=== PATIENT | female | born 1935 | race Caucasian/White ===

== ENCOUNTER 2017-11-01 15:15 | Emergency (ER) | payer MEDICARE, OTHER | END 2017-11-01 17:55 | disposition home or self-care (01) | LOC: ERS 15:15 | DX: R21 Rash and other nonspecific skin eruption (principal); F32.9 Major depressive disorder, single episode, unspecified; G40.909 Epilepsy, unspecified, not intractable, without status epilepticus; I48.91 Unspecified atrial fibrillation | CPT/HCPCS: 99282 ==

== ENCOUNTER 2017-11-16 16:30 | Emergency (ER) | payer MEDICARE, OTHER ==
[2017-11-16] MEDS ORDERED: Acetaminophen 500 MG TAB ONE (17:45)
[2017-11-16 18:00] LABS: Bilirubin Negative (Negative); Blood, Urine Negative (Negative); Clarity CLOUDY (Clear); Glucose, Urine (Dipstick) Negative (Negative); Leukocyte Negative (Negative); Nitrite Negative (Negative); Protein, Urine (Dipstick) Negative (Neg-Trace); Specific Gravity, Urine 1.016 (1.002-1.036)
[2017-11-16 18:48] LABS: Hemoglobin 14.3 g/dL (12.0-16.0); Mean Corpuscular HGB CONC 32.5 g/dL (32.0-36.0); Mean Corpuscular Hemoglobin 32.4 pg (27.0-31.0); Mean Corpuscular Volume 99.6 fl (81.0-99.0); RBC Distribution Width 12.9 % (11.5-14.5); White Blood Cell (WBC) Count 2.4 thou/uL (4.8-10.8)
--- NOTE | 2017-11-16 19:01 | RAD ---
TWO VIEW CHEST 11/16/17 HISTORY: Fever. Lungs are clear. No infiltrate identified. Heart is mildly enlarged. Vascular markings are normal. De generative change in the spine. Vertebral bodies maintain height. There are deformities in ribs bilaterally indicating old rib fractures. IMPRESSION: No acute lung process identified. There is mild hyperexpansion and mild cardiomegaly. POS: H
[2017-11-16 19:07] LABS: Band 4 % (5-11); Lymphocytes 12 % (21-51); MDiff Complete? YES; Mean Platelet Volume 8.9 fL (7.4-10.4); Monocytes 16 % (0-10); Neutrophil 68 % (42-75); PLT Morphology Comment Appears Decreased; Platelet Count 88 thou/uL (130-400)
[2017-11-16 19:10] LABS: ALT (SGPT) 23 U/L (8-55); AST (SGOT) 39 U/L (5-34); Albumin 4.5 g/dL (3.4-4.8); Alkaline Phosphatase 98 U/L (40-150); Anion Gap 17 mmol/L (10-20); BUN (Urea Nitrogen) 15 mg/dL (9.8-20.1); Bilirubin, Total 0.7 mg/dL (0.2-1.2); CRP (Inflammatory) 0.59 mg/dL (= or < 0.5); Calc. Creatinine Clearance 0 mL/min (70-130); Calcium 9.2 mg/dL (7.8-10.44); Carbon Dioxide 22 mmol/L (23-31); Chloride 100 mmol/L (98-107); Estimated GFR-MDRD 59; Globulin 2.6 g/dL (2.4-3.5); Glucose 85 mg/dL (83-110); Potassium 4.1 mmol/L (3.5-5.1); Protein, Total 7.1 g/dL (6.0-8.3); Sodium 135 mmol/L (136-145)
== END 2017-11-16 20:08 | disposition home or self-care (01) ==
LOC: ERS 16:30
DX: J10.1 Influenza due to other identified influenza virus with other respiratory manifestations (principal); F41.9 Anxiety disorder, unspecified; F32.9 Major depressive disorder, single episode, unspecified; Z79.899 Other long term (current) drug therapy; Z79.01 Long term (current) use of anticoagulants
CPT/HCPCS: 71046; 80053; 81003; 83605; 85025; 86140

== ENCOUNTER 2022-06-29 13:21 | Inpatient (IN) | payer MEDICARE ==
[2022-06-29 14:33] LABS: #Monocytes 0.5 thou/uL (0.11-0.59); #Neutrophils 2.9 thou/uL (1.40-6.50); %Basophils 0.7 % (0.0-1.0); %Eosinophils 0.8 % (0.0-10.0); %Lymphocytes 22.5 % (21.0-51.0); %Monocytes 10.5 % (0.0-10.0); %Neutrophils 65.5 % (42.0-75.0); Hemoglobin 12.7 g/dL (12.0-16.0); Mean Corpuscular HGB CONC 33.1 g/dL (32.0-36.0); Mean Corpuscular Hemoglobin 31.1 pg (27.0-31.0); Mean Corpuscular Volume 93.9 fL (78.0-98.0); Mean Platelet Volume 8.1 fL (7.4-10.4); Platelet Count 119 thou/uL (130-400); RBC Distribution Width 11.9 % (11.5-14.5); Red Blood Cell (RBC) Count 4.08 mill/uL (4.20-5.40); White Blood Cell (WBC) Count 4.5 thou/uL (4.8-10.8)
[2022-06-29] MEDS ORDERED: Iopamidol-370 76% 500 ML 1 ML ONE (14:49)
[2022-06-29 14:51] LABS: ALT (SGPT) 55 U/L (8-55); AST (SGOT) 47 U/L (5-34); Albumin 3.9 g/dL (3.4-4.8); Alkaline Phosphatase 249 U/L (40-110); Anion Gap 16 mmol/L (10-20); BUN (Urea Nitrogen) 9 mg/dL (9.8-20.1); Bilirubin, Total 0.9 mg/dL (0.2-1.2); Calc. Creatinine Clearance 0 mL/min (70-130); Calcium 9.3 mg/dL (7.8-10.44); Carbon Dioxide 23 mmol/L (23-31); Chloride 97 mmol/L (98-107); Estimated GFR 73; Globulin 2.5 g/dL (2.4-3.5); Glucose 107 mg/dL (83-110); Lipase 20 U/L (8-78); Potassium 3.5 mmol/L (3.5-5.1); Protein, Total 6.4 g/dL (5.8-8.1); Sodium 132 mmol/L (136-145)
[2022-06-29 17:41] LABS: Bilirubin Negative (Negative); Blood, Urine Negative (Negative); Clarity Clear (Clear); Glucose, Urine (Dipstick) Normal (Negative); Ketone, Urine 10 mg/dL (Negative); Leukocyte Negative Leu/uL (Negative); Nitrite Negative (Negative); Protein, Urine (Dipstick) Negative (Neg-Trace); Specific Gravity, Urine 1.015 (1.002-1.036); Urobilinogen Normal mg/dL (Less than 2)
[2022-06-29] MEDS ORDERED: Morphine 4 MG/ML VIAL ONE (21:29)
[2022-06-30 00:22] LABS: SARS-CoV-2 NAA Rapid Test Not Detected (NotDetected)
[2022-06-30] MEDS ORDERED: Ondansetron PF 4 MG/2 ML Vial IVP PRN (00:25)
[2022-06-30] MEDS ORDERED: Ondansetron ODT 4 MG TAB PO PRN (00:25)
[2022-06-30] MEDS ORDERED: Acetaminophen 325 MG TAB PO PRN (00:25)
[2022-06-30] MEDS ORDERED: Acetaminophen 650 MG Suppository PR PRN (00:25)
[2022-06-30 02:11] VITALS: BMI 17.6
[2022-06-30 07:11] LABS: #Eosinphils 0.1 thou/uL (0.0-0.7); #Lymphocytes 1.2 thou/uL (1.20-3.40); #Monocytes 0.6 thou/uL (0.11-0.59); #Neutrophils 2.9 thou/uL (1.40-6.50); %Basophils 0.5 % (0.0-1.0); %Eosinophils 1.4 % (0.0-10.0); %Lymphocytes 25.8 % (21.0-51.0); %Neutrophils 60.2 % (42.0-75.0); Hemoglobin 12.4 g/dL (12.0-16.0); Mean Corpuscular HGB CONC 32.9 g/dL (32.0-36.0); Mean Corpuscular Hemoglobin 31.3 pg (27.0-31.0); Mean Corpuscular Volume 95.1 fL (78.0-98.0); Mean Platelet Volume 8.6 fL (7.4-10.4); Platelet Count 118 thou/uL (130-400); RBC Distribution Width 11.9 % (11.5-14.5); Red Blood Cell (RBC) Count 3.96 mill/uL (4.20-5.40); White Blood Cell (WBC) Count 4.8 thou/uL (4.8-10.8)
[2022-06-30 07:23] LABS: Anion Gap 12 mmol/L (10-20); BUN (Urea Nitrogen) 13 mg/dL (9.8-20.1); Calc. Creatinine Clearance 48 mL/min (70-130); Calcium 8.5 mg/dL (7.8-10.44); Carbon Dioxide 25 mmol/L (23-31); Chloride 101 mmol/L (98-107); Estimated GFR 85; Glucose 89 mg/dL (83-110); Potassium 3.5 mmol/L (3.5-5.1); Sodium 134 mmol/L (136-145)
[2022-06-30] MEDS: Enoxaparin Sodium 40 MG/0.4 ML SYRINGE SC SCH (08:08)
[2022-06-30] MEDS: Dronabinol 2.5 MG CAP PO SCH (17:32)
[2022-06-30] MEDS: Senokot S 8.6-50 MG TAB PO SCH (21:40)
[2022-06-30] MEDS: PHENobarbital 32.4 MG TAB PO SCH (21:40)
[2022-07-01] MEDS: Senokot S 8.6-50 MG TAB PO SCH ×2 (09:08→20:56)
[2022-07-01] MEDS: Dronabinol 2.5 MG CAP PO SCH ×2 (09:09→17:10)
[2022-07-01] MEDS: Polyethylene Glycol 3350 17 GM Packet PO SCH (09:09)
[2022-07-01] MEDS: Enoxaparin Sodium 40 MG/0.4 ML SYRINGE SC SCH (09:09)
[2022-07-01] MEDS ORDERED: Fleet Enema 133 ML BOT PR SCH ×2 (15:00→17:15)
[2022-07-01] MEDS: PHENobarbital 32.4 MG TAB PO SCH (20:55)
[2022-07-02] MEDS ORDERED: Simethicone Chewable 80 MG TAB PO PRN (00:07)
[2022-07-02] MEDS ORDERED: Glycerin Adult Supp. (24 ct jar) PR PRN (00:26)
[2022-07-02] MEDS: Senokot S 8.6-50 MG TAB PO SCH ×2 (08:15→21:39)
[2022-07-02] MEDS: Polyethylene Glycol 3350 17 GM Packet PO SCH (08:15)
[2022-07-02] MEDS: Dronabinol 2.5 MG CAP PO SCH ×2 (08:15→16:33)
[2022-07-02] MEDS: Enoxaparin Sodium 40 MG/0.4 ML SYRINGE SC SCH (08:16)
[2022-07-02] MEDS: Metoclopramide HCl 10 MG/2 ML VIAL IVP PRN (16:39)
[2022-07-02] MEDS: Sodium Chloride 0.9% 1,000 ML IV SCH (16:40)
[2022-07-02] MEDS ORDERED: hydrALAZINE 20 MG/ML VIAL SLOW IVP PRN (17:25)
[2022-07-02] MEDS: D5W-AA 4.25% with LYTES 1,000 ML IV SCH (18:35)
[2022-07-02] MEDS: PHENobarbital Sodium 65 MG/ML VIAL SLOW IVP SCH (21:13)
[2022-07-03] MEDS: Metoclopramide HCl 10 MG/2 ML VIAL IVP PRN (06:18)
[2022-07-03 06:56] LABS: #Eosinphils 0.1 thou/uL (0.0-0.7); #Lymphocytes 0.8 thou/uL (1.20-3.40); #Monocytes 0.7 thou/uL (0.11-0.59); #Neutrophils 4.2 thou/uL (1.40-6.50); %Basophils 0.2 % (0.0-1.0); %Eosinophils 0.9 % (0.0-10.0); %Lymphocytes 13.9 % (21.0-51.0); %Monocytes 11.4 % (0.0-10.0); %Neutrophils 73.5 % (42.0-75.0); Hemoglobin 13.5 g/dL (12.0-16.0); Mean Corpuscular HGB CONC 33.2 g/dL (32.0-36.0); Mean Corpuscular Hemoglobin 31.2 pg (27.0-31.0); Mean Platelet Volume 8.3 fL (7.4-10.4); Platelet Count 151 thou/uL (130-400); RBC Distribution Width 11.9 % (11.5-14.5); Red Blood Cell (RBC) Count 4.32 mill/uL (4.20-5.40); White Blood Cell (WBC) Count 5.7 thou/uL (4.8-10.8)
[2022-07-03 07:20] LABS: ALT (SGPT) 42 U/L (8-55); AST (SGOT) 36 U/L (5-34); Albumin 3.4 g/dL (3.4-4.8); Alkaline Phosphatase 239 U/L (40-110); Anion Gap 16 mmol/L (10-20); BUN (Urea Nitrogen) 10 mg/dL (9.8-20.1); Calc. Creatinine Clearance 55 mL/min (70-130); Calcium 8.4 mg/dL (7.8-10.44); Carbon Dioxide 22 mmol/L (23-31); Chloride 91 mmol/L (98-107); Estimated GFR 88; Globulin 2.3 g/dL (2.4-3.5); Glucose 120 mg/dL (83-110); Potassium 3.7 mmol/L (3.5-5.1); Protein, Total 5.7 g/dL (5.8-8.1); Sodium 125 mmol/L (136-145)
[2022-07-03] MEDS: Dronabinol 2.5 MG CAP PO SCH ×2 (08:28→17:24)
[2022-07-03] MEDS: Polyethylene Glycol 3350 17 GM Packet PO SCH (08:51)
[2022-07-03] MEDS: Senokot S 8.6-50 MG TAB PO SCH ×2 (08:51→20:17)
[2022-07-03] MEDS: Enoxaparin Sodium 40 MG/0.4 ML SYRINGE SC SCH (08:51)
[2022-07-03] MEDS: Sodium Chloride 0.9% 1,000 ML IV SCH (16:50)
[2022-07-03] MEDS: D5W-AA 4.25% with LYTES 1,000 ML IV SCH (18:05)
[2022-07-03] MEDS: PHENobarbital Sodium 65 MG/ML VIAL SLOW IVP SCH (20:17)
[2022-07-04] MEDS: Enoxaparin Sodium 40 MG/0.4 ML SYRINGE SC SCH (08:53)
[2022-07-04] MEDS: Dronabinol 2.5 MG CAP PO SCH ×2 (08:53→16:56)
[2022-07-04] MEDS: Senokot S 8.6-50 MG TAB PO SCH ×2 (08:54→20:37)
[2022-07-04] MEDS: Polyethylene Glycol 3350 17 GM Packet PO SCH (08:54)
[2022-07-04 09:38] LABS: Anion Gap 15 mmol/L (10-20); BUN (Urea Nitrogen) 13 mg/dL (9.8-20.1); Calc. Creatinine Clearance 48 mL/min (70-130); Calcium 8.4 mg/dL (7.8-10.44); Carbon Dioxide 23 mmol/L (23-31); Chloride 95 mmol/L (98-107); Estimated GFR 85; Glucose 170 mg/dL (83-110); Potassium 3.8 mmol/L (3.5-5.1); Sodium 129 mmol/L (136-145)
[2022-07-04 15:12] LABS: Bacteria/HPF 3+ HPF (None Seen); Bilirubin Negative (Negative); Blood, Urine Negative (Negative); Clarity Clear (Clear); Glucose, Urine (Dipstick) Normal (Negative); Ketone, Urine Negative (Negative); Leukocyte Negative Leu/uL (Negative); Nitrite Negative (Negative); Protein, Urine (Dipstick) Negative (Neg-Trace); RBC/HPF 0-3 HPF (0-3); Specific Gravity, Urine 1.008 (1.002-1.036); Squamous Epithelial 0-3 HPF (0-3); WBC/HPF 0-3 HPF (0-3)
[2022-07-04 15:13] LABS: Urine Culture Reflex Yes Yes
[2022-07-04 15:48] LABS: Sodium, Urine Less than 20 mmol/L (Not Available); Urea Nitrogen, Random Urine 408 mg/dl
[2022-07-04] MEDS ORDERED: PHENobarbital 32.4 MG TAB PO SCH (21:00)
[2022-07-05] MEDS: Senokot S 8.6-50 MG TAB PO SCH (08:27)
[2022-07-05] MEDS: Polyethylene Glycol 3350 17 GM Packet PO SCH (08:27)
[2022-07-05] MEDS: Dronabinol 2.5 MG CAP PO SCH (08:27)
[2022-07-05] MEDS ORDERED: Rivaroxaban 10 MG TAB PO SCH (09:00)
[2022-07-05 11:25] LABS: Anion Gap 12 mmol/L (10-20); BUN (Urea Nitrogen) 11 mg/dL (9.8-20.1); Calc. Creatinine Clearance 48 mL/min (70-130); Calcium 8.4 mg/dL (7.8-10.44); Carbon Dioxide 27 mmol/L (23-31); Chloride 96 mmol/L (98-107); Estimated GFR 85; Glucose 125 mg/dL (83-110); Sodium 131 mmol/L (136-145)
[2022-07-05 15:38] VITALS: BP 135/90; TEMP 97.3
== END 2022-07-05 16:02 | disposition hospice, home (50) | DRG 435 ==
LOC: ERS 13:21 → INTOOBSV 22:23 → ERHOLD 22:23 → T4-A 06-30 01:43 → OBSVTOIN 07-01 15:21
PROVIDERS: ADMIT Hospitalist; ATTEND Hospitalist
DX: C25.1 Malignant neoplasm of body of pancreas (principal); Z66 Do not resuscitate; Z20.822 Contact with and (suspected) exposure to COVID-19; Z51.5 Encounter for palliative care; E43 Unspecified severe protein-calorie malnutrition; K56.7 Ileus, unspecified; C79.89 Secondary malignant neoplasm of other specified sites; E87.1 Hypo-osmolality and hyponatremia; G40.802 Other epilepsy, not intractable, without status epilepticus; Z68.1 Body mass index [BMI] 19.9 or less, adult; G40.909 Epilepsy, unspecified, not intractable, without status epilepticus; D69.6 Thrombocytopenia, unspecified; K59.09 Other constipation; N18.2 Chronic kidney disease, stage 2 (mild); I12.9 Hypertensive chronic kidney disease with stage 1 through stage 4 chronic kidney disease, or unspecified chronic kidney disease; Z28.21 Immunization not carried out because of patient refusal; Z88.8 Allergy status to other drugs, medicaments and biological substances; Z79.899 Other long term (current) drug therapy; Z79.1 Long term (current) use of non-steroidal anti-inflammatories (NSAID); Z86.718 Personal history of other venous thrombosis and embolism; Z90.710 Acquired absence of both cervix and uterus
CPT/HCPCS: 36415; 71045; 71275; 74018; 74177; 80048; 80053; 81001; 81003; 82378; 83605; 83690; 83880; 83930; 83935; 84300; 84484; 84540; 84560; 85025; 86301; 87086; 93005; 96361; 96372; 96374; G0378; J1650; J2270; J2560; J2765; J7050; Q0167; Q9967

== ENCOUNTER 2022-08-13 21:50 | Inpatient (IN) | payer MEDICARE ==
[2022-08-13] MEDS ORDERED: Fentanyl 100 MCG/2 ML VIAL ONE (22:03)
[2022-08-13 22:30] LABS: Hemoglobin 13.3 g/dL (12.0-16.0); Mean Corpuscular HGB CONC 32.5 g/dL (32.0-36.0); Mean Corpuscular Hemoglobin 30.8 pg (27.0-31.0); Mean Corpuscular Volume 94.8 fL (78.0-98.0); Mean Platelet Volume 8.9 fL (7.4-10.4); Platelet Count 114 thou/uL (130-400); RBC Distribution Width 11.6 % (11.5-14.5); Red Blood Cell (RBC) Count 4.32 mill/uL (4.20-5.40); White Blood Cell (WBC) Count 5.4 thou/uL (4.8-10.8)
[2022-08-13 22:41] LABS: ALT (SGPT) 34 U/L (8-55); AST (SGOT) 37 U/L (5-34); Albumin 3.8 g/dL (3.4-4.8); Alkaline Phosphatase 331 U/L (40-110); Anion Gap 14 mmol/L (10-20); BUN (Urea Nitrogen) 10 mg/dL (9.8-20.1); Bilirubin, Total 0.6 mg/dL (0.2-1.2); Calc. Creatinine Clearance 0 mL/min (70-130); Calcium 9.1 mg/dL (7.8-10.44); Carbon Dioxide 26 mmol/L (23-31); Chloride 99 mmol/L (98-107); Estimated GFR 86; Globulin 2.4 g/dL (2.4-3.5); Glucose 116 mg/dL (83-110); Potassium 3.7 mmol/L (3.5-5.1); Protein, Total 6.2 g/dL (5.8-8.1); Sodium 135 mmol/L (136-145)
[2022-08-13 22:52] LABS: #Eosinphils 0.1 thou/uL (0.0-0.7); #Lymphocytes 1.3 thou/uL (1.20-3.40); #Monocytes 0.6 thou/uL (0.11-0.59); #Neutrophils 3.4 thou/uL (1.40-6.50); %Basophils 0.4 % (0.0-1.0); %Eosinophils 2.1 % (0.0-10.0); %Lymphocytes 24.1 % (21.0-51.0); %Monocytes 10.4 % (0.0-10.0); Large Platelets SLIGHT; MDiff Complete? YES; Platelet Morphology Comment Appears Decreased; RBC Morphology Normal
[2022-08-13] MEDS ORDERED: TETANUS, DIPHTHERIA TOX,ADULT (TDVAX) 0.5 ML VIAL IM ONE (23:19)
[2022-08-13] MEDS ORDERED: Promethazine HCl 25 MG/ML VIAL IM PRN (23:19)
[2022-08-14] MEDS: Sodium Chloride 0.9% 1,000 ML IV SCH ×2 (00:52→17:53)
[2022-08-14] MEDS: Acetaminophen 500 MG TAB PO SCH ×4 (01:01→17:53)
[2022-08-14] MEDS: Morphine 2 MG/ML VIAL SLOW IVP PRN ×3 (01:01→19:23)
[2022-08-14 04:20] LABS: #Lymphocytes 0.7 thou/uL (1.20-3.40); #Monocytes 0.6 thou/uL (0.11-0.59); %Basophils 0.3 % (0.0-1.0); %Eosinophils 0.4 % (0.0-10.0); %Monocytes 7.6 % (0.0-10.0); %Neutrophils 81.7 % (42.0-75.0); Hemoglobin 12.8 g/dL (12.0-16.0); Mean Corpuscular Hemoglobin 31.5 pg (27.0-31.0); Mean Corpuscular Volume 95.3 fL (78.0-98.0); Mean Platelet Volume 9.7 fL (7.4-10.4); Platelet Count 117 thou/uL (130-400); RBC Distribution Width 11.5 % (11.5-14.5); Red Blood Cell (RBC) Count 4.06 mill/uL (4.20-5.40); White Blood Cell (WBC) Count 7.4 thou/uL (4.8-10.8)
[2022-08-14 04:30] LABS: Anion Gap 15 mmol/L (10-20); BUN (Urea Nitrogen) 10 mg/dL (9.8-20.1); Calc. Creatinine Clearance 43 mL/min (70-130); Calcium 8.7 mg/dL (7.8-10.44); Carbon Dioxide 26 mmol/L (23-31); Chloride 98 mmol/L (98-107); Estimated GFR 86; Glucose 117 mg/dL (83-110); Potassium 3.8 mmol/L (3.5-5.1); Sodium 135 mmol/L (136-145)
[2022-08-14] MEDS: Famotidine/PF 20 mg/2ml Vial SLOW IVP SCH ×2 (08:40→20:59)
[2022-08-14] MEDS: Dronabinol 2.5 MG CAP PO SCH ×2 (08:40→17:53)
[2022-08-14] MEDS: PHENobarbital 32.4 MG TAB PO SCH (08:41)
[2022-08-14 11:19] LABS: SARS-CoV-2 NAA Rapid Test Not Detected (NotDetected)
[2022-08-14] MEDS ORDERED: Senokot S 8.6-50 MG TAB PO SCH (13:15)
[2022-08-14] MEDS ORDERED: Rivaroxaban 10 MG TAB PO SCH (17:00)
[2022-08-14] MEDS: Senokot S 8.6-50 MG TAB PO SCH (20:57)
[2022-08-14] MEDS ORDERED: Magnesium 2 GM/50 ML(in water) 2 GM in Premix Bag 1 BAG IVPB SCH (22:00)
[2022-08-14] MEDS ORDERED: Glycerin Adult Supp. (24 ct jar) PR PRN (23:51)
[2022-08-14] MEDS ORDERED: Simethicone Chewable 80 MG TAB PO PRN (23:51)
[2022-08-15] MEDS: Acetaminophen 500 MG TAB PO SCH ×4 (00:24→17:29)
[2022-08-15 04:29] LABS: #Lymphocytes 0.7 thou/uL (1.20-3.40); #Monocytes 0.9 thou/uL (0.11-0.59); #Neutrophils 6.4 thou/uL (1.40-6.50); %Basophils 0.2 % (0.0-1.0); %Eosinophils 0.4 % (0.0-10.0); %Lymphocytes 8.8 % (21.0-51.0); %Monocytes 11.6 % (0.0-10.0); Mean Corpuscular HGB CONC 32.8 g/dL (32.0-36.0); Mean Corpuscular Volume 94.7 fL (78.0-98.0); Mean Platelet Volume 9.7 fL (7.4-10.4); Platelet Count 112 thou/uL (130-400); RBC Distribution Width 11.7 % (11.5-14.5); Red Blood Cell (RBC) Count 3.87 mill/uL (4.20-5.40); White Blood Cell (WBC) Count 8.1 thou/uL (4.8-10.8)
[2022-08-15 04:57] LABS: Anion Gap 13 mmol/L (10-20); BUN (Urea Nitrogen) 11 mg/dL (9.8-20.1); Calc. Creatinine Clearance 51 mL/min (70-130); Calcium 8.5 mg/dL (7.8-10.44); Carbon Dioxide 23 mmol/L (23-31); Chloride 102 mmol/L (98-107); Estimated GFR 87; Glucose 137 mg/dL (83-110); Magnesium 2.4 mg/dL (1.6-2.6); Phosphorus 2.5 mg/dL (2.3-4.7); Potassium 3.3 mmol/L (3.5-5.1); Sodium 135 mmol/L (136-145)
[2022-08-15] MEDS: Morphine 2 MG/ML VIAL SLOW IVP PRN ×4 (06:01→17:29)
[2022-08-15] MEDS: Sodium Chloride 0.9% 1,000 ML IV SCH (06:08)
[2022-08-15] MEDS ORDERED: CEFAZOLIN 2 GM in Sodium Chloride 0.9% 100 ML IVPB SCH (07:45)
[2022-08-15] MEDS ORDERED: Senokot S 8.6-50 MG TAB PO SCH (09:00)
[2022-08-15] MEDS: Famotidine/PF 20 mg/2ml Vial SLOW IVP SCH ×2 (10:43→20:55)
[2022-08-15] MEDS: Senokot S 8.6-50 MG TAB PO SCH ×2 (10:56→21:11)
[2022-08-15] MEDS: Dronabinol 2.5 MG CAP PO SCH ×2 (11:12→16:16)
[2022-08-15] MEDS ORDERED: Ondansetron ODT 4 MG TAB PO PRN (14:07)
[2022-08-15] MEDS ORDERED: Morphine IR 10 MG/5 ML UDCUP PO PRN (14:07)
[2022-08-15] MEDS: Ondansetron PF 4 MG/2 ML Vial IVP PRN (14:09)
[2022-08-15] MEDS ORDERED: diphenhydrAMINE 25 MG CAP PO PRN (15:20)
[2022-08-15] MEDS: PHENobarbital 32.4 MG TAB PO SCH ×2 (15:34→20:55)
[2022-08-15] MEDS ORDERED: SIMETHICONE 125 MG PO SCH (17:00)
[2022-08-15] MEDS: Simethicone Chewable 80 MG TAB PO SCH ×2 (20:55→22:20)
[2022-08-16] MEDS: Acetaminophen 500 MG TAB PO SCH ×4 (01:00→18:41)
[2022-08-16] MEDS: Polyethylene Glycol 3350 17 GM Packet PO SCH ×4 (09:12→21:28)
[2022-08-16] MEDS: Famotidine/PF 20 mg/2ml Vial SLOW IVP SCH ×2 (09:17→21:32)
[2022-08-16] MEDS: Simethicone Chewable 80 MG TAB PO SCH ×4 (09:17→23:17)
[2022-08-16] MEDS: Dronabinol 2.5 MG CAP PO SCH ×2 (09:17→19:51)
[2022-08-16] MEDS: Senokot S 8.6-50 MG TAB PO SCH ×2 (09:20→21:36)
[2022-08-16] MEDS: Morphine 2 MG/ML VIAL SLOW IVP PRN ×3 (12:30→23:53)
[2022-08-16] MEDS ORDERED: CEFAZOLIN 2 GM VIAL ONE (15:07)
[2022-08-16] MEDS ORDERED: Sodium Chloride 0.9% 100 ML ONE (15:07)
[2022-08-16] MEDS ORDERED: PROPOFOL 200 MG/20 ML VIAL ONE (15:28)
[2022-08-16] MEDS ORDERED: Ondansetron PF 4 MG/2 ML Vial ONE (15:28)
[2022-08-16] MEDS ORDERED: Fentanyl 100 MCG/2 ML VIAL ONE (17:02)
[2022-08-16] MEDS ORDERED: hydrALAZINE 20 MG/ML VIAL SLOW IVP PRN (18:14)
[2022-08-16] MEDS: Sodium Chloride 0.9% 1,000 ML IV SCH ×2 (19:51→22:08)
[2022-08-16] MEDS ORDERED: Fentanyl 100 MCG/2 ML VIAL SLOW IVP SCH (20:15)
[2022-08-16] MEDS: Lorazepam 1 MG TAB PO SCH (21:35)
[2022-08-16] MEDS: PHENobarbital 32.4 MG TAB PO SCH (21:35)
[2022-08-16] MEDS: CEFAZOLIN 2 GM in Sodium Chloride 0.9% 100 ML IVPB SCH (23:56)
[2022-08-17] MEDS: Acetaminophen 500 MG TAB PO SCH ×4 (00:16→18:16)
[2022-08-17 04:51] LABS: #Eosinphils 0.1 thou/uL (0.0-0.7); #Lymphocytes 1.4 thou/uL (1.20-3.40); #Monocytes 1.4 thou/uL (0.11-0.59); %Basophils 0.5 % (0.0-1.0); %Eosinophils 0.8 % (0.0-10.0); %Lymphocytes 14.1 % (21.0-51.0); %Monocytes 14.5 % (0.0-10.0); %Neutrophils 70.2 % (42.0-75.0); Hemoglobin 12.6 g/dL (12.0-16.0); Mean Corpuscular Hemoglobin 30.8 pg (27.0-31.0); Mean Corpuscular Volume 96.4 fL (78.0-98.0); Mean Platelet Volume 9.3 fL (7.4-10.4); Platelet Count 151 thou/uL (130-400); RBC Distribution Width 11.9 % (11.5-14.5); Red Blood Cell (RBC) Count 4.08 mill/uL (4.20-5.40); White Blood Cell (WBC) Count 9.9 thou/uL (4.8-10.8)
[2022-08-17 05:13] LABS: Anion Gap 11 mmol/L (10-20); BUN (Urea Nitrogen) 10 mg/dL (9.8-20.1); Calc. Creatinine Clearance 49 mL/min (70-130); Calcium 8.7 mg/dL (7.8-10.44); Carbon Dioxide 27 mmol/L (23-31); Chloride 101 mmol/L (98-107); Estimated GFR 86; Glucose 104 mg/dL (83-110); Magnesium 1.9 mg/dL (1.6-2.6); Phosphorus 2.9 mg/dL (2.3-4.7); Potassium 4.1 mmol/L (3.5-5.1); Sodium 135 mmol/L (136-145)
[2022-08-17] MEDS: Famotidine/PF 20 mg/2ml Vial SLOW IVP SCH ×2 (08:42→20:44)
[2022-08-17] MEDS: Simethicone Chewable 80 MG TAB PO SCH ×3 (08:42→18:16)
[2022-08-17] MEDS: Dronabinol 2.5 MG CAP PO SCH ×2 (08:43→15:45)
[2022-08-17] MEDS: CEFAZOLIN 2 GM in Sodium Chloride 0.9% 100 ML IVPB SCH ×4 (08:44→15:39)
[2022-08-17] MEDS: Senokot S 8.6-50 MG TAB PO SCH ×2 (08:45→20:44)
[2022-08-17] MEDS: Polyethylene Glycol 3350 17 GM Packet PO SCH ×2 (08:45→20:42)
[2022-08-17] MEDS: Lorazepam 0.5 MG TAB PO PRN ×2 (08:57→17:27)
[2022-08-17] MEDS ORDERED: FLU VACC QS2022-23(65YR UP)/PF 240 MCG/0.7 ML SYRINGE IM ONE (09:00)
[2022-08-17] MEDS: Morphine 4 MG/ML VIAL SLOW IVP PRN ×2 (15:38→18:22)
[2022-08-17] MEDS: Lorazepam 1 MG TAB PO SCH (20:44)
[2022-08-17] MEDS: PHENobarbital 32.4 MG TAB PO SCH (20:44)
[2022-08-18] MEDS: Simethicone Chewable 80 MG TAB PO SCH ×5 (01:58→21:33)
[2022-08-18] MEDS: Acetaminophen 500 MG TAB PO SCH ×5 (01:58→23:54)
[2022-08-18 06:15] LABS: #Eosinphils 0.1 thou/uL (0.0-0.7); #Lymphocytes 1.2 thou/uL (1.20-3.40); #Monocytes 0.9 thou/uL (0.11-0.59); %Basophils 0.3 % (0.0-1.0); %Eosinophils 1.1 % (0.0-10.0); %Lymphocytes 16.1 % (21.0-51.0); %Neutrophils 70.5 % (42.0-75.0); Hemoglobin 10.3 g/dL (12.0-16.0); Mean Corpuscular HGB CONC 31.9 g/dL (32.0-36.0); Mean Corpuscular Hemoglobin 30.7 pg (27.0-31.0); Mean Corpuscular Volume 96.2 fL (78.0-98.0); Mean Platelet Volume 8.5 fL (7.4-10.4); Platelet Count 151 thou/uL (130-400); RBC Distribution Width 11.9 % (11.5-14.5); Red Blood Cell (RBC) Count 3.35 mill/uL (4.20-5.40); White Blood Cell (WBC) Count 7.1 thou/uL (4.8-10.8)
[2022-08-18] MEDS: Famotidine/PF 20 mg/2ml Vial SLOW IVP SCH ×2 (08:48→21:33)
[2022-08-18] MEDS: Dronabinol 2.5 MG CAP PO SCH ×2 (08:49→17:31)
[2022-08-18] MEDS: Senokot S 8.6-50 MG TAB PO SCH ×2 (08:49→21:34)
[2022-08-18] MEDS: Polyethylene Glycol 3350 17 GM Packet PO SCH ×2 (08:50→21:34)
[2022-08-18] MEDS: Morphine 4 MG/ML VIAL SLOW IVP PRN ×3 (14:02→18:36)
[2022-08-18] MEDS: Lorazepam 0.5 MG TAB PO PRN (15:07)
[2022-08-18] MEDS: PHENobarbital 32.4 MG TAB PO SCH (21:33)
[2022-08-18] MEDS: Lorazepam 1 MG TAB PO SCH (21:34)
[2022-08-19] MEDS: Acetaminophen 500 MG TAB PO SCH ×3 (05:33→18:33)
[2022-08-19 06:41] LABS: #Eosinphils 0.1 thou/uL (0.0-0.7); #Lymphocytes 0.8 thou/uL (1.20-3.40); #Monocytes 0.7 thou/uL (0.11-0.59); #Neutrophils 4.1 thou/uL (1.40-6.50); %Basophils 0.1 % (0.0-1.0); %Eosinophils 1.6 % (0.0-10.0); %Lymphocytes 13.7 % (21.0-51.0); %Monocytes 12.9 % (0.0-10.0); %Neutrophils 71.7 % (42.0-75.0); Hemoglobin 10.4 g/dL (12.0-16.0); Mean Corpuscular HGB CONC 31.9 g/dL (32.0-36.0); Mean Corpuscular Hemoglobin 30.6 pg (27.0-31.0); Mean Corpuscular Volume 95.9 fL (78.0-98.0); Mean Platelet Volume 8.5 fL (7.4-10.4); Platelet Count 151 thou/uL (130-400); Red Blood Cell (RBC) Count 3.39 mill/uL (4.20-5.40); White Blood Cell (WBC) Count 5.7 thou/uL (4.8-10.8)
[2022-08-19] MEDS: Morphine 4 MG/ML VIAL SLOW IVP PRN ×3 (07:41→16:23)
[2022-08-19] MEDS: Senokot S 8.6-50 MG TAB PO SCH ×2 (09:59→20:43)
[2022-08-19] MEDS: Simethicone Chewable 80 MG TAB PO SCH ×4 (09:59→20:43)
[2022-08-19] MEDS: Polyethylene Glycol 3350 17 GM Packet PO SCH ×2 (09:59→20:47)
[2022-08-19] MEDS: Dronabinol 2.5 MG CAP PO SCH ×2 (09:59→16:25)
[2022-08-19] MEDS: Famotidine/PF 20 mg/2ml Vial SLOW IVP SCH ×2 (09:59→20:47)
[2022-08-19] MEDS: Acetaminophen/Codeine 30-300mg Tablet PO PRN (20:43)
[2022-08-19] MEDS: Acetaminophen 325 MG TAB PO SCH (20:45)
[2022-08-19] MEDS: Lorazepam 1 MG TAB PO SCH (20:47)
[2022-08-19] MEDS: PHENobarbital 32.4 MG TAB PO SCH (21:00)
[2022-08-20] MEDS: Acetaminophen 325 MG TAB PO SCH ×4 (02:36→21:57)
[2022-08-20] MEDS: Acetaminophen/Codeine 30-300mg Tablet PO PRN ×3 (02:37→21:57)
[2022-08-20] MEDS: Ondansetron PF 4 MG/2 ML Vial IVP PRN ×2 (03:56→13:56)
[2022-08-20] MEDS: Lorazepam 0.5 MG TAB PO PRN ×2 (05:31→13:44)
[2022-08-20] MEDS: Dronabinol 2.5 MG CAP PO SCH ×2 (10:06→16:25)
[2022-08-20] MEDS: Famotidine/PF 20 mg/2ml Vial SLOW IVP SCH ×2 (10:07→21:54)
[2022-08-20] MEDS: Simethicone Chewable 80 MG TAB PO SCH ×4 (10:08→21:56)
[2022-08-20] MEDS: Polyethylene Glycol 3350 17 GM Packet PO SCH ×2 (10:08→21:58)
[2022-08-20] MEDS: Senokot S 8.6-50 MG TAB PO SCH ×2 (10:08→21:56)
[2022-08-20] MEDS ORDERED: Morphine IR 10 MG/5 ML UDCUP PO PRN (10:56)
[2022-08-20] MEDS ORDERED: Morphine 20 MG/ML Oral Solution (ROXANOL) SL PRN (10:57)
[2022-08-20] MEDS: Morphine 20 MG/ML Oral Solution (ROXANOL) SL PRN ×2 (12:55→16:24)
[2022-08-20] MEDS: Morphine 10 MG/0.5 ML ORAL SYRINGE SL PRN ×2 (19:29→21:53)
[2022-08-20] MEDS: Melatonin 3 MG TAB PO SCH (21:57)
[2022-08-20] MEDS: Lorazepam 1 MG TAB PO SCH (21:57)
[2022-08-20] MEDS: PHENobarbital 32.4 MG TAB PO SCH (22:01)
[2022-08-21] MEDS: Acetaminophen 325 MG TAB PO SCH ×4 (05:42→20:33)
[2022-08-21] MEDS: Senokot S 8.6-50 MG TAB PO SCH ×2 (08:50→20:32)
[2022-08-21] MEDS: Simethicone Chewable 80 MG TAB PO SCH ×4 (08:50→20:40)
[2022-08-21] MEDS: Famotidine/PF 20 mg/2ml Vial SLOW IVP SCH (08:51)
[2022-08-21] MEDS: Polyethylene Glycol 3350 17 GM Packet PO SCH ×2 (08:51→20:35)
[2022-08-21] MEDS: Dronabinol 2.5 MG CAP PO SCH ×2 (08:53→17:35)
[2022-08-21] MEDS: Morphine 10 MG/0.5 ML ORAL SYRINGE SL PRN ×5 (10:31→20:41)
[2022-08-21 11:16] VITALS: BMI 17.4
[2022-08-21] MEDS: Acetaminophen/Codeine 30-300mg Tablet PO PRN (11:36)
[2022-08-21] MEDS: Lorazepam 0.5 MG TAB PO PRN (13:09)
[2022-08-21] MEDS: Lorazepam 1 MG TAB PO SCH (20:34)
[2022-08-21] MEDS: Melatonin 3 MG TAB PO SCH (20:34)
[2022-08-21] MEDS: PHENobarbital 32.4 MG TAB PO SCH (20:48)
[2022-08-22] MEDS: Morphine 10 MG/0.5 ML ORAL SYRINGE SL PRN ×5 (01:49→20:11)
[2022-08-22] MEDS: Acetaminophen 325 MG TAB PO SCH ×4 (01:49→20:06)
[2022-08-22] MEDS: Dronabinol 2.5 MG CAP PO SCH ×2 (06:41→18:13)
[2022-08-22] MEDS: Simethicone Chewable 80 MG TAB PO SCH ×4 (10:35→20:10)
[2022-08-22] MEDS: Polyethylene Glycol 3350 17 GM Packet PO SCH ×2 (10:46→20:04)
[2022-08-22] MEDS: Senokot S 8.6-50 MG TAB PO SCH ×2 (10:47→20:09)
[2022-08-22] MEDS: Famotidine 20 MG TAB PO SCH (10:47)
[2022-08-22] MEDS: Lorazepam 0.5 MG TAB PO PRN (10:47)
[2022-08-22] MEDS: Lorazepam 1 MG TAB PO SCH (20:07)
[2022-08-22] MEDS: Melatonin 3 MG TAB PO SCH (20:08)
[2022-08-22] MEDS: PHENobarbital 32.4 MG TAB PO SCH (20:08)
[2022-08-23] MEDS: Acetaminophen 325 MG TAB PO SCH ×2 (01:27→08:58)
[2022-08-23] MEDS: Morphine 10 MG/0.5 ML ORAL SYRINGE SL PRN ×3 (01:29→10:44)
[2022-08-23] MEDS: Dronabinol 2.5 MG CAP PO SCH (06:06)
[2022-08-23] MEDS: Polyethylene Glycol 3350 17 GM Packet PO SCH (08:57)
[2022-08-23] MEDS: Simethicone Chewable 80 MG TAB PO SCH (08:58)
[2022-08-23] MEDS: Senokot S 8.6-50 MG TAB PO SCH (08:59)
[2022-08-23] MEDS: Famotidine 20 MG TAB PO SCH (08:59)
[2022-08-23 09:06] VITALS: BP 139/87; TEMP 98.4
[2022-08-23] MEDS: Lorazepam 0.5 MG TAB PO PRN (11:36)
== END 2022-08-23 11:55 | DRG 956 ==
LOC: ERS 21:50 → 2NO 23:24 → SURG B 08-17 14:01
PROVIDERS: ADMIT Surgery; ATTEND Surgery
PROC: 0QS604Z Reposition Right Upper Femur with Internal Fixation Device, Open Approach (ICD-10-PCS; principal; 2022-08-16)
DX: S72.21XA Displaced subtrochanteric fracture of right femur, initial encounter for closed fracture (principal); Z66 Do not resuscitate; Z20.822 Contact with and (suspected) exposure to COVID-19; S06.5X0A Traumatic subdural hemorrhage without loss of consciousness, initial encounter; E43 Unspecified severe protein-calorie malnutrition; I47.20 Ventricular tachycardia, unspecified; I48.20 Chronic atrial fibrillation, unspecified; Z68.1 Body mass index [BMI] 19.9 or less, adult; F41.9 Anxiety disorder, unspecified; F32.A Depression, unspecified; W18.39XA Other fall on same level, initial encounter; G40.909 Epilepsy, unspecified, not intractable, without status epilepticus; Z80.0 Family history of malignant neoplasm of digestive organs; Z90.710 Acquired absence of both cervix and uterus; Z98.0 Intestinal bypass and anastomosis status; Z88.8 Allergy status to other drugs, medicaments and biological substances; Y92.002 Bathroom of unspecified non-institutional (private) residence as the place of occurrence of the external cause; Z79.899 Other long term (current) drug therapy; Z79.01 Long term (current) use of anticoagulants
CPT/HCPCS: 36415; 70450; 71045; 72170; 76000; 80048; 80053; 83735; 84100; 85025; 87811; 93005; 93970; 96374; C1713; J0360; J0690; J2270; J2405; J2704; J3010; J3475; J3490; J7050; Q0167; S0028; U0002